=== PATIENT | female | born 1970 | race Caucasian/White ===

== ENCOUNTER 2017-04-10 17:24 | Inpatient (IN) | payer MEDICAID ==
[~2017-04-10] VITALS: Ht 170.2 cm; Wt 77.6 kg
[2017-04-10] MEDS ORDERED: IV NORMAL SALINE 1000ML BAG 1,000 ML IV ONE (17:45)
[2017-04-10 18:23] LABS: BASO % 0 % (0-3); EOS % 0 % (0-3); HEMATOCRIT 36.5 % (36.0-47.0); HEMOGLOBIN 11.8 g/dL (12.0-15.5); LYMPH # 0.6 x10^3/uL (1.0-4.8); LYMPH % 4 % (24-48); MEAN CORPUSCULAR HEMOGLOBIN 29 pg (25-35); MEAN CORPUSCULAR HGB CONC 32 g/dL (31-37); MEAN CORPUSCULAR VOLUME 90 fL (79-100); MONO % 6 % (0-9); NEUT % 89 % (31-73); PLATELET COUNT 316 x10^3/uL (140-400); RED BLOOD COUNT 4.06 x10^6/uL (3.50-5.40)
[2017-04-10 18:24] LABS: BILIRUBIN,URINE NEGATIVE (NEG); GLUCOSE,URINE NEGATIVE (NEG); NITRITE,URINE NEGATIVE (NEG); PH,URINE 6.5; PROTEIN,URINE NEGATIVE (NEG-TRACE); UROBILINOGEN,URINE 0.2 mg/dL (0.2 mg/dL)
[2017-04-10 18:30] LABS: BARBITURATES NEG (NEG); BENZODIAZEPINES NEG (NEG); CANNABINOIDS NEG (NEG); COCAINE NEG (NEG); METHADONE NEG (NEG); OPIATES NEG (NEG); PHENCYCLIDINE NEG (NEG); RBC,URINE OCC /HPF (0-2)
[2017-04-10 18:31] LABS: BACTERIA,URINE 0 /HPF (0-FEW); SQUAMOUS EPITHELIAL CELL,UR FEW /LPF
--- NOTE | 2017-04-10 18:33 | PHYS DOC ---
Past Medical History Past Medical History: Bronchitis, Constipation, Depression, Hypertension, UTI Additional Past Medical Histor: INHALENT ABUSE,,SUBSTANCE ABUSE Past Surgical History: No Surgical History Additional Past Surgical Histo: UNKNOWN Alcohol Use: None Drug Use: None Adult General Chief Complaint Chief Complaint: OTHER COMPLAINTS HPI HPI This is a 46-year-old female who has history of multiple psychiatric comorbidities and is presenting with concern for inability and refusal to take medications at her nursing facility. Patient was just recently admitted to [facility] in their psychiatric unit for this previous complaint and was actually just discharged earlier today. She was discharged in the [facility] where they state now she is again refusing to take her medications. Her primary care doctor wanted her to be seen at [facility] but [facility] did not have any psychiatric beds available and so she presents here for further evaluation. Upon my initial assessment, the patient has a bedside tremor that the facility states she has known history of but she is noncommittal with a history and will not answer basic questions. She is awake and will respond when I call her by her first name but refuses to answer any other questions. Review of Systems Review of Systems A 10 point review of systems is unable be obtained segment of the patient's psychiatric mental status. Current Medications Current Medications Current Medications Medications (Trade) Dose Ordered Sig/Lacey Start Time Stop Time Status Last Admin Dose Admin Sodium Chloride 1,000 ml @ 1,000 mls/hr 1X ONCE 04/10/17 17:45 04/10/17 18:44 DC 04/10/17 18:32 1,000 MLS/HR Allergies Allergies Allergies Coded Allergies Type Severity Reaction Last Updated Verified Penicillins Allergy Intermediate 04/10/17 Yes Physical Exam Physical Exam Constitutional: Well developed, well nourished, no acute distress, non-toxic appearance. [] HENT: Normocephalic, atraumatic, bilateral external ears normal, oropharynx moist, no oral exudates, nose normal. [] Eyes: PERRLA, EOMI, conjunctiva normal, no discharge. [] Neck: Normal range of motion, no tenderness, supple, no stridor. [] Cardiovascular:Heart rate regular rhythm, no murmur [] Lungs & Thorax: Bilateral breath sounds clear to auscultation [] Abdomen: Bowel sounds normal, soft, no tenderness, no masses, no pulsatile masses. [] Skin: Warm, dry, no erythema, no rash. [] Back: No tenderness, no CVA tenderness. [] Extremities: No tenderness, no cyanosis, no clubbing, ROM intact, no edema, a tremor is present. [] Neurologic: Normal motor function, normal sensory function, no focal deficits noted. [] Psychologic: Affect normal, judgement normal, mood normal. [] Current Patient Data Vital Signs Vital Signs Date Time Temp Pulse Resp B/P (MAP) Pulse Ox O2 Delivery O2 Flow Rate FiO2 04/10/17 20:30 102 24 119/67 (84) 96 Room Air 04/10/17 17:34 98.5 98.5 Lab Values Laboratory Tests Test 04/10/17 18:05 04/10/17 18:15 Urine Collection Type U cath Urine Color Yellow Urine Clarity Clear Urine pH 6.5 Urine Specific [place] 1.015 Urine Protein Negative mg/dL (NEG-TRACE) Urine Glucose (UA) Negative mg/dL (NEG) Urine Ketones (Stick) >=80 mg/dL (NEG) Urine Blood Negative (NEG) Urine Nitrite Negative (NEG) Urine Bilirubin Negative (NEG) Urine Urobilinogen Dipstick 0.2 mg/dL (0.2 mg/dL) Urine Leukocyte Esterase Small (NEG) Urine RBC Occ /HPF (0-2) Urine WBC 5-10 /HPF (0-4) Urine Squamous Epithelial Cells Few /LPF Urine Bacteria 0 /HPF (0-FEW) Urine Hyaline Casts Few /HPF Urine Mucus Marked /LPF Urine Opiates Screen Neg (NEG) Urine Methadone Screen Neg (NEG) Urine Barbiturates Neg (NEG) Urine Phencyclidine Screen Neg (NEG) Urine Amphetamine/Methamphetamine Neg (NEG) Urine Benzodiazepines Screen Neg (NEG) Urine Cocaine Screen Neg (NEG) Urine Cannabinoids Screen Neg (NEG) Urine Ethyl Alcohol Neg (NEG) White Blood Count 13.0 x10^3/uL (4.0-11.0) H Red Blood Count 4.06 x10^6/uL (3.50-5.40) Hemoglobin 11.8 g/dL (12.0-15.5) L Hematocrit 36.5 % (36.0-47.0) Mean Corpuscular Volume 90 fL (79-100) Mean Corpuscular Hemoglobin 29 pg (25-35) Mean Corpuscular Hemoglobin Concent 32 g/dL (31-37) Red Cell Distribution Width 14.0 % (11.5-14.5) Platelet Count 316 x10^3/uL (140-400) Neutrophils (%) (Auto) 89 % (31-73) H Lymphocytes (%) (Auto) 4 % (24-48) L Monocytes (%) (Auto) 6 % (0-9) Eosinophils (%) (Auto) 0 % (0-3) Basophils (%) (Auto) 0 % (0-3) Neutrophils # (Auto) 11.6 x10^3uL (1.8-7.7) H Lymphocytes # (Auto) 0.6 x10^3/uL (1.0-4.8) L Monocytes # (Auto) 0.8 x10^3/uL (0.0-1.1) Eosinophils # (Auto) 0.0 x10^3/uL (0.0-0.7) Basophils # (Auto) 0.0 x10^3/uL (0.0-0.2) Segmented Neutrophils % 89 % (35-66) H Lymphocytes % 5 % (24-48) L Monocytes % 6 % (0-10) Platelet Estimate Adequate (ADEQUATE) Sodium Level 142 mmol/L (136-145) Potassium Level 4.0 mmol/L (3.5-5.1) Chloride Level 105 mmol/L (98-107) Carbon Dioxide Level 27 mmol/L (21-32) Anion Gap 10 (6-14) Blood Urea Nitrogen 12 mg/dL (7-20) Creatinine 0.9 mg/dL (0.6-1.0) Estimated GFR (Cockcroft-Gault) 67.1 Glucose Level 118 mg/dL (70-99) H Calcium Level 9.4 mg/dL (8.5-10.1) Salicylates Level < 2.8 mg/dL (2.8-20.0) L Salicylate Last Dose Date Unk Salicylate Last Dose Time Unk Acetaminophen Level < 2 mcg/ml (10-30) L Acetaminophen Last Dose Date Unk Acetaminophen Last Dose Time Unk Ethyl Alcohol Level < 10 mg/dL (0-10) Laboratory Tests 04/10/17 18:15 Laboratory Tests 04/10/17 18:15 EKG EKG EKG as interpreted by me shows a sinus tachycardia with a rate of 113 bpm. There is no acute injury pattern seen. EKG interpretation is somewhat limited due to the patient's ongoing tremor. Radiology/Procedures Radiology/Procedures [] Course & Med Decision Making Course & Med Decision Making Pertinent Labs and Imaging studies reviewed. (See chart for details) 46-year-old female who continues to have a resting tremor and refuses to take medications at her assisted living facility. Her laboratory workup was unremarkable. Due to the fact that she was just discharged from [facility] for this issue an attempt to transfer the patient to [facility] will be made as our facility does not have ability to place psychiatric patients in our hospital. Attempts to admit the patient to [facility] was unsuccessful. I discussed the possible need to admit the patient with the hospitalist, Dr. Waldrop, who agrees to accept for further evaluation treatment for her ongoing dehydration that is likely psychogenic in etiology due to her history of severe schizophrenia. Psychiatric assessment team was called to evaluate the patient. I discussed the case with Dr. Waldrop who agrees to accept for hospital stay if placement is not able to be obtained while in the department. I will sign out this patient to Dr. Catalan and other ED staff for further evaluation and treatment with this plan in mind. Her laboratory workup was fairly unremarkable besides having ketones in her urine which is consistent with mild dehydration diagnosis. Dragon Disclaimer Dragon Disclaimer This electronic medical record was generated, in whole or in part, using a voice recognition dictation system. Departure Departure Impression: Primary Impression: Psychiatric disorder Additional Impression: Dehydration Disposition: ADMITTED INPATIENT Admitting Physician: Chano Waldrop Condition: STABLE Referrals: JEF ATKINSON (PCP) Problem Qualifiers NITA MORSE DO April 10, 2017 18:33
[2017-04-10 18:35] LABS: CALCIUM 9.4 mg/dL (8.5-10.1); CREATININE 0.9 mg/dL (0.6-1.0); GFR 67.1
[2017-04-10 18:40] LABS: ETHANOL < 10 mg/dL (0-10)
[2017-04-10 18:49] LABS: PLT ESTIMATE ADEQUATE (ADEQUATE)
[2017-04-10] MEDS ORDERED: ONDANSETRON PF 4 MG/2 ML VIAL. IV PRN (21:30)
[2017-04-10] MEDS ORDERED: ACETAMINOPHEN 325 MG TABLET. PO PRN (21:30)
[2017-04-11] MEDS: IV NORMAL SALINE 1000ML BAG 1,000 ML IV SCH ×3 (02:00→13:30)
[2017-04-11] MEDS ORDERED: ARIP10TA13 PO ×2 (02:22→02:31)
[2017-04-11] MEDS ORDERED: LORA1TAB PO (02:31)
[2017-04-11] MEDS ORDERED: ACET500T68 PO (02:31)
[2017-04-11] MEDS ORDERED: CEPH500C PO (02:31)
[2017-04-11] MEDS ORDERED: MOXI3DRO2 OP (02:31)
[2017-04-11] MEDS ORDERED: BISA-42 PR (02:36)
[2017-04-11] MEDS ORDERED: IBUP-1027 PO (02:45)
[2017-04-11] MEDS ORDERED: SIME80TA14 PO (02:45)
[2017-04-11] MEDS ORDERED: LORA10TA3 PO (02:45)
[2017-04-11] MEDS ORDERED: CALC11776 PO (02:45)
[2017-04-11] MEDS ORDERED: VITA400C36 PO (02:45)
[2017-04-11] MEDS ORDERED: MOXI3DRO EACHEYE ×2 (02:50)
[2017-04-11 03:00] VITALS: BP 100/67
[2017-04-11 05:54] LABS: BASO % 0 % (0-3); EOS % 1 % (0-3); HEMOGLOBIN 10.2 g/dL (12.0-15.5); LYMPH % 10 % (24-48); MEAN CORPUSCULAR HEMOGLOBIN 30 pg (25-35); MEAN CORPUSCULAR HGB CONC 33 g/dL (31-37); MEAN CORPUSCULAR VOLUME 90 fL (79-100); MONO % 8 % (0-9); NEUT % 81 % (31-73); PLATELET COUNT 281 x10^3/uL (140-400); RED BLOOD COUNT 3.44 x10^6/uL (3.50-5.40); RED CELL DISTRIBUTION WIDTH 14.2 % (11.5-14.5); WHITE BLOOD COUNT 10.2 x10^3/uL (4.0-11.0)
[2017-04-11 06:06] LABS: CALCIUM 8.7 mg/dL (8.5-10.1); CREATININE 0.5 mg/dL (0.6-1.0); GFR 132.2; POTASSIUM 3.8 mmol/L (3.5-5.1)
--- NOTE | 2017-04-11 06:18 | EKG ---
[facility] [address] [place] [address] Test Date: 2017-04-10 Test Time: 18:40:32 Pat Name: LESLY MARQUES Department: Room: Gender: F Cell Tuber Hand: : 1970 Requested By: NITA MORSE Order Number: [id number] Reading MD: Measurements Intervals [place] Rate: 113 P: -17 ME: 110 QRS: 24 QRSD: 84 T: 26 QT: 342 QTc: 475 Interpretive Statements SINUS TACHYCARDIA QRS(T) CONTOUR ABNORMALITY CONSIDER ANTEROSEPTAL MYOCARDIAL DAMAGE CANNOT RULE OUT INFERIOR MYOCARDIAL DAMAGE RI6.01 Unconfirmed report No previous ECG available for comparison
[2017-04-11 07:00] VITALS: BP 121/79
[2017-04-11] MEDS ORDERED: ONDANSETRON PF 4 MG/2 ML VIAL. IV PRN (09:55)
[2017-04-11] MEDS ORDERED: SIMETHICONE 80 MG TAB.CHEW PO PRN (10:00)
[2017-04-11] MEDS ORDERED: BISACODYL 5 MG TABLET.DR. PO PRN (10:00)
[2017-04-11] MEDS ORDERED: ACETAMINOPHEN 325 MG TABLET. PO PRN (10:00)
[2017-04-11] MEDS ORDERED: IBUPROFEN 400 MG TABLET. PO PRN (10:00)
--- NOTE | 2017-04-11 10:41 | PDOC1 ---
History and Physical Date of Admission Date of Admission DATE: 04/11/17 TIME: 10:28 Identification/Chief Complaint Chief Complaint refusal to drink meds, eat Problems: Source Source: Caregiver, Chart review, Patient History of Present Illness History of Present Illness 46 y.o female with psych issues, transferred from [facility] to [facility] ER last night bec of refusal to drink meds. She was attempted to transfer [facility] psych odonnell by ER last night but to no avail. She was just recently dcd from [facility] psych odonnell, dx of schizophrenia. NOw pt refusing IV line, refusing to talk to me or staff, refusing to eat or take meds Dw sister on phone,shakes of her hand is normal. Sister claims she found a place to take her [place], Spoke with SW of [facility], claims there is no psych MD there but another staff told me there was a psych MD engineering operations leader. LAbs benign, all psych issues but unfortunately is not eager to accept her back LAbs just show ketonuria, all else is neg Sw at claims she has rhabdo, all labs look ok - will order CPK to check on rhabdo,. But UA does not show blood - doubt rhabdo Past Medical History Psych: Schizophrenia Past Surgical History Past Surgical History: Other (couls not be obtained from patient) Family History Family History: Other (could not be obtained from patient) Social History Smoke: No ALCOHOL: none Drugs: None Current Problem List Problem List Problems Medical Problems: (1) Dehydration Status: Acute (2) Psychiatric disorder Status: Acute Problems: Current Medications Current Medications Current Medications Sodium Chloride 1,000 ml @ 1,000 mls/hr 1X ONCE IV Last administered on t 18:32; Start 04/10/17 at 17:45; Stop 04/10/17 at 18:44; Status DC Ondansetron HCl (Zofran) 4 mg PRN Q8HRS PRN IV NAUSEA/VOMITING; Start 04/10/17 at 21:30; Stop 04/11/17 at 09:58; Status DC Sodium Chloride 1,000 ml @ 125 mls/hr Q8H IV ; Start 04/10/17 at 21:30; Stop at 21:29 Acetaminophen (Tylenol) 650 mg PRN Q4HRS PRN PO FEVER; Start 04/10/17 at 21:30 ; Stop 04/11/17 at 21:29 Ondansetron HCl (Zofran) 4 mg PRN Q6HRS PRN IV NAUSEA/VOMITING; Start 04/11/17 at 09:55; Stop 04/12/17 at 09:54 Acetaminophen (Tylenol) 650 mg PRN Q6HRS PRN PO PAIN; Start 04/11/17 at 10:00 Bisacodyl (Dulcolax Tab) 10 mg PRN DAILY PRN PO CONSTIPATION; Start 04/11/17 at 10:00 Ibuprofen (Motrin) 400 mg PRN Q4HRS PRN PO INFLAMMATION; Start 04/11/17 at 10: 00 Lorazepam (Ativan) 1 mg TID PO ; Start 04/11/17 at 14:00 Simethicone (Gas-X) 80 mg TID PRN PO UPSET GI; Start 04/11/17 at 10:00 Aripiprazole (Abilify) 10 mg BID PO ; Start 04/11/17 at 11:00 Cetirizine HCl (ZyrTEC) 10 mg DAILY PO ; Start 04/11/17 at 11:00 Vitamin E 400 unit DAILY PO ; Start 04/11/17 at 11:00 Active Scripts Active Reported Moxeza (Moxifloxacin Hcl) 3 Ml Drops.visc 1 Drop EACHEYE TID Vitamin E (Vitamin E Mixed) 400 Unit Capsule 400 Unit PO DAILY Simethicone 80 Mg Tab.chew 80 Mg PO Loratadine 10 Mg Tablet 1 Tab PO DAILY Ibuprofen 400 Mg Tablet 400 Mg PO PRN Q4HRS PRN Tums Ultra Strength (Calcium Carbonate) 1,177 Mg Tab.chew 1,177 Mg PO Dulcolax (Bisacodyl) 5 Mg Tablet.dr 10 Mg GA PRN DAILY PRN Acetaminophen 500 Mg Tablet 650 Mg PO PRN Q4HRS PRN Lorazepam 1 Mg Tablet 1 Tab PO TID Cephalexin 500 Mg Capsule 1 Cap PO QID Abilify (Aripiprazole) 10 Mg Tablet 10 Mg PO BID Allergies Allergies: Coded Allergies: Penicillins (Verified Allergy, Intermediate, 04/10/17) ROS Review of System unable to obtain - refuses to talk Physical Exam General: No acute distress, Other (refusal to talk, hands shaking - her baseline) HEENT: Atraumatic, PERRLA, EOMI Lungs: Clear to auscultation, Normal air movement Heart: S1S2, RRR, no thrills, no rubs Cardiovascular: S1, S2 Breasts: Normal Abdomen: Normal bowel sounds, Soft, No tenderness, No hepatosplenomegaly, No masses Rectal Exam: not examined PELVIC: Nml ext genitalia Extremities: No clubbing, No cyanosis, No edema, Normal pulses, No tenderness/ swelling Skin: No rashes, No breakdown, No significant lesion Neuro: Normal gait, Normal speech, Strength at 5/5 X4 ext, Normal tone, Sensation intact, Cranial nerves 3-12 NL, Reflexes 2+ Psych/Mental Status: Other (refusal to talk) Vitals Vitals Vital Signs Date Time Temp Pulse Resp B/P (MAP) Pulse Ox O2 Delivery O2 Flow Rate FiO2 04/11/17 07:00 97.7 96 20 121/79 (93) 92 Room Air 97.7 Labs Labs Laboratory Tests Test 04/10/17 18:05 04/10/17 18:15 04/11/17 05:20 Urine Collection Type U cath Urine Color Yellow Urine Clarity Clear Urine pH 6.5 Urine Specific [place] 1.015 Urine Protein Negative mg/dL (NEG-TRACE) Urine Glucose (UA) Negative mg/dL (NEG) Urine Ketones (Stick) >=80 mg/dL (NEG) Urine Blood Negative (NEG) Urine Nitrite Negative (NEG) Urine Bilirubin Negative (NEG) Urine Urobilinogen Dipstick 0.2 mg/dL (0.2 mg/dL) Urine Leukocyte Esterase Small (NEG) Urine RBC Occ /HPF (0-2) Urine WBC 5-10 /HPF (0-4) Urine Squamous Epithelial Cells Few /LPF Urine Bacteria 0 /HPF (0-FEW) Urine Hyaline Casts Few /HPF Urine Mucus Marked /LPF Urine Opiates Screen Neg (NEG) Urine Methadone Screen Neg (NEG) Urine Barbiturates Neg (NEG) Urine Phencyclidine Screen Neg (NEG) Urine Amphetamine/Methamphetamine Neg (NEG) Urine Benzodiazepines Screen Neg (NEG) Urine Cocaine Screen Neg (NEG) Urine Cannabinoids Screen Neg (NEG) Urine Ethyl Alcohol Neg (NEG) White Blood Count 13.0 x10^3/uL (4.0-11.0) 10.2 x10^3/uL (4.0-11.0) Red Blood Count 4.06 x10^6/uL (3.50-5.40) 3.44 x10^6/uL (3.50-5.40) Hemoglobin 11.8 g/dL (12.0-15.5) 10.2 g/dL (12.0-15.5) Hematocrit 36.5 % (36.0-47.0) 31.0 % (36.0-47.0) Mean Corpuscular Volume 90 fL (79-100) 90 fL (79-100) Mean Corpuscular Hemoglobin 29 pg (25-35) 30 pg (25-35) Mean Corpuscular Hemoglobin Concent 32 g/dL (31-37) 33 g/dL (31-37) Red Cell Distribution Width 14.0 % (11.5-14.5) 14.2 % (11.5-14.5) Platelet Count 316 x10^3/uL (140-400) 281 x10^3/uL (140-400) Neutrophils (%) (Auto) 89 % (31-73) 81 % (31-73) Lymphocytes (%) (Auto) 4 % (24-48) 10 % (24-48) Monocytes (%) (Auto) 6 % (0-9) 8 % (0-9) Eosinophils (%) (Auto) 0 % (0-3) 1 % (0-3) Basophils (%) (Auto) 0 % (0-3) 0 % (0-3) Neutrophils # (Auto) 11.6 x10^3uL (1.8-7.7) 8.3 x10^3uL (1.8-7.7) Lymphocytes # (Auto) 0.6 x10^3/uL (1.0-4.8) 1.0 x10^3/uL (1.0-4.8) Monocytes # (Auto) 0.8 x10^3/uL (0.0-1.1) 0.8 x10^3/uL (0.0-1.1) Eosinophils # (Auto) 0.0 x10^3/uL (0.0-0.7) 0.1 x10^3/uL (0.0-0.7) Basophils # (Auto) 0.0 x10^3/uL (0.0-0.2) 0.0 x10^3/uL (0.0-0.2) Segmented Neutrophils % 89 % (35-66) Lymphocytes % 5 % (24-48) Monocytes % 6 % (0-10) Platelet Estimate Adequate (ADEQUATE) Sodium Level 142 mmol/L (136-145) 142 mmol/L (136-145) Potassium Level 4.0 mmol/L (3.5-5.1) 3.8 mmol/L (3.5-5.1) Chloride Level 105 mmol/L (98-107) 106 mmol/L (98-107) Carbon Dioxide Level 27 mmol/L (21-32) 24 mmol/L (21-32) Anion Gap 10 (6-14) 12 (6-14) Blood Urea Nitrogen 12 mg/dL (7-20) 13 mg/dL (7-20) Creatinine 0.9 mg/dL (0.6-1.0) 0.5 mg/dL (0.6-1.0) Estimated GFR (Cockcroft-Gault) 67.1 132.2 Glucose Level 118 mg/dL (70-99) 90 mg/dL (70-99) Calcium Level 9.4 mg/dL (8.5-10.1) 8.7 mg/dL (8.5-10.1) Salicylates Level < 2.8 mg/dL (2.8-20.0) Salicylate Last Dose Date Unk Salicylate Last Dose Time Unk Acetaminophen Level < 2 mcg/ml (10-30) Acetaminophen Last Dose Date Unk Acetaminophen Last Dose Time Unk Ethyl Alcohol Level < 10 mg/dL (0-10) Laboratory Tests Test 04/10/17 18:05 04/10/17 18:15 04/11/17 05:20 Urine Collection Type U cath Urine Color Yellow Urine Clarity Clear Urine pH 6.5 Urine Specific [place] 1.015 Urine Protein Negative mg/dL (NEG-TRACE) Urine Glucose (UA) Negative mg/dL (NEG) Urine Ketones (Stick) >=80 mg/dL (NEG) Urine Blood Negative (NEG) Urine Nitrite Negative (NEG) Urine Bilirubin Negative (NEG) Urine Urobilinogen Dipstick 0.2 mg/dL (0.2 mg/dL) Urine Leukocyte Esterase Small (NEG) Urine RBC Occ /HPF (0-2) Urine WBC 5-10 /HPF (0-4) Urine Squamous Epithelial Cells Few /LPF Urine Bacteria 0 /HPF (0-FEW) Urine Hyaline Casts Few /HPF Urine Mucus Marked /LPF Urine Opiates Screen Neg (NEG) Urine Methadone Screen Neg (NEG) Urine Barbiturates Neg (NEG) Urine Phencyclidine Screen Neg (NEG) Urine Amphetamine/Methamphetamine Neg (NEG) Urine Benzodiazepines Screen Neg (NEG) Urine Cocaine Screen Neg (NEG) Urine Cannabinoids Screen Neg (NEG) Urine Ethyl Alcohol Neg (NEG) White Blood Count 13.0 x10^3/uL (4.0-11.0) 10.2 x10^3/uL (4.0-11.0) Red Blood Count 4.06 x10^6/uL (3.50-5.40) 3.44 x10^6/uL (3.50-5.40) Hemoglobin 11.8 g/dL (12.0-15.5) 10.2 g/dL (12.0-15.5) Hematocrit 36.5 % (36.0-47.0) 31.0 % (36.0-47.0) Mean Corpuscular Volume 90 fL (79-100) 90 fL (79-100) Mean Corpuscular Hemoglobin 29 pg (25-35) 30 pg (25-35) Mean Corpuscular Hemoglobin Concent 32 g/dL (31-37) 33 g/dL (31-37) Red Cell Distribution Width 14.0 % (11.5-14.5) 14.2 % (11.5-14.5) Platelet Count 316 x10^3/uL (140-400) 281 x10^3/uL (140-400) Neutrophils (%) (Auto) 89 % (31-73) 81 % (31-73) Lymphocytes (%) (Auto) 4 % (24-48) 10 % (24-48) Monocytes (%) (Auto) 6 % (0-9) 8 % (0-9) Eosinophils (%) (Auto) 0 % (0-3) 1 % (0-3) Basophils (%) (Auto) 0 % (0-3) 0 % (0-3) Neutrophils # (Auto) 11.6 x10^3uL (1.8-7.7) 8.3 x10^3uL (1.8-7.7) Lymphocytes # (Auto) 0.6 x10^3/uL (1.0-4.8) 1.0 x10^3/uL (1.0-4.8) Monocytes # (Auto) 0.8 x10^3/uL (0.0-1.1) 0.8 x10^3/uL (0.0-1.1) Eosinophils # (Auto) 0.0 x10^3/uL (0.0-0.7) 0.1 x10^3/uL (0.0-0.7) Basophils # (Auto) 0.0 x10^3/uL (0.0-0.2) 0.0 x10^3/uL (0.0-0.2) Segmented Neutrophils % 89 % (35-66) Lymphocytes % 5 % (24-48) Monocytes % 6 % (0-10) Platelet Estimate Adequate (ADEQUATE) Sodium Level 142 mmol/L (136-145) 142 mmol/L (136-145) Potassium Level 4.0 mmol/L (3.5-5.1) 3.8 mmol/L (3.5-5.1) Chloride Level 105 mmol/L (98-107) 106 mmol/L (98-107) Carbon Dioxide Level 27 mmol/L (21-32) 24 mmol/L (21-32) Anion Gap 10 (6-14) 12 (6-14) Blood Urea Nitrogen 12 mg/dL (7-20) 13 mg/dL (7-20) Creatinine 0.9 mg/dL (0.6-1.0) 0.5 mg/dL (0.6-1.0) Estimated GFR (Cockcroft-Gault) 67.1 132.2 Glucose Level 118 mg/dL (70-99) 90 mg/dL (70-99) Calcium Level 9.4 mg/dL (8.5-10.1) 8.7 mg/dL (8.5-10.1) Salicylates Level < 2.8 mg/dL (2.8-20.0) Salicylate Last Dose Date Unk Salicylate Last Dose Time Unk Acetaminophen Level < 2 mcg/ml (10-30) Acetaminophen Last Dose Date Unk Acetaminophen Last Dose Time Unk Ethyl Alcohol Level < 10 mg/dL (0-10) VTE Prophylaxis Ordered VTE Prophylaxis Devices: Yes VTE Pharmacological Prophylaxi: Yes Assessment/Plan Assessment/Plan 1. Schizophrenia 2. Refusal to take meds 3/ r/o rhabdo 4. AOCD 5. Chronic hand shakes 6. Reactive leukocytosis, resolved 7. Ketonuria - advised inc OFI PLAN: Check cpk and myoglobin UA does now show blood - doubt rhabdo All labs look ok Inc OFI Needs psych eval Dw RN, SW, case mx, GL 3 diff people Sister on the phone etc, multiple times VERY SIGNIF TIME.. VAHID LONDONO MD April 11, 2017 10:41
--- NOTE | 2017-04-11 10:49 | PDOC3 ---
Discharge Summary Visit Information Date of Admission: April 10, 2017 Date of Discharge: April 11, 2017 Admitting Diagnosis Comment: 1. Schizophrenia 2. Refusal to take meds 3/ r/o rhabdo 4. AOCD 5. Chronic hand shakes 6. Reactive leukocytosis, resolved 7. Ketonuria - advised inc OFI Final Diagnosis Problems Medical Problems: (1) Dehydration Status: Acute (2) Psychiatric disorder Status: Acute Brief Hospital Course Allergies Allergies Coded Allergies Type Severity Reaction Last Updated Verified Penicillins Allergy Intermediate 04/10/17 Yes Vital Signs Vital Signs Date Time Temp Pulse Resp B/P (MAP) Pulse Ox O2 Delivery O2 Flow Rate FiO2 04/11/17 07:00 97.7 96 20 121/79 (93) 92 Room Air 97.7 Lab Results Laboratory Tests Test 04/10/17 18:05 04/10/17 18:15 04/11/17 05:20 Urine Collection Type U cath Urine Color Yellow Urine Clarity Clear Urine pH 6.5 Urine Specific [place] 1.015 Urine Protein Negative mg/dL (NEG-TRACE) Urine Glucose (UA) Negative mg/dL (NEG) Urine Ketones (Stick) >=80 mg/dL (NEG) Urine Blood Negative (NEG) Urine Nitrite Negative (NEG) Urine Bilirubin Negative (NEG) Urine Urobilinogen Dipstick 0.2 mg/dL (0.2 mg/dL) Urine Leukocyte Esterase Small (NEG) Urine RBC Occ /HPF (0-2) Urine WBC 5-10 /HPF (0-4) Urine Squamous Epithelial Cells Few /LPF Urine Bacteria 0 /HPF (0-FEW) Urine Hyaline Casts Few /HPF Urine Mucus Marked /LPF Urine Opiates Screen Neg (NEG) Urine Methadone Screen Neg (NEG) Urine Barbiturates Neg (NEG) Urine Phencyclidine Screen Neg (NEG) Urine Amphetamine/Methamphetamine Neg (NEG) Urine Benzodiazepines Screen Neg (NEG) Urine Cocaine Screen Neg (NEG) Urine Cannabinoids Screen Neg (NEG) Urine Ethyl Alcohol Neg (NEG) White Blood Count 13.0 x10^3/uL (4.0-11.0) 10.2 x10^3/uL (4.0-11.0) Red Blood Count 4.06 x10^6/uL (3.50-5.40) 3.44 x10^6/uL (3.50-5.40) Hemoglobin 11.8 g/dL (12.0-15.5) 10.2 g/dL (12.0-15.5) Hematocrit 36.5 % (36.0-47.0) 31.0 % (36.0-47.0) Mean Corpuscular Volume 90 fL (79-100) 90 fL (79-100) Mean Corpuscular Hemoglobin 29 pg (25-35) 30 pg (25-35) Mean Corpuscular Hemoglobin Concent 32 g/dL (31-37) 33 g/dL (31-37) Red Cell Distribution Width 14.0 % (11.5-14.5) 14.2 % (11.5-14.5) Platelet Count 316 x10^3/uL (140-400) 281 x10^3/uL (140-400) Neutrophils (%) (Auto) 89 % (31-73) 81 % (31-73) Lymphocytes (%) (Auto) 4 % (24-48) 10 % (24-48) Monocytes (%) (Auto) 6 % (0-9) 8 % (0-9) Eosinophils (%) (Auto) 0 % (0-3) 1 % (0-3) Basophils (%) (Auto) 0 % (0-3) 0 % (0-3) Neutrophils # (Auto) 11.6 x10^3uL (1.8-7.7) 8.3 x10^3uL (1.8-7.7) Lymphocytes # (Auto) 0.6 x10^3/uL (1.0-4.8) 1.0 x10^3/uL (1.0-4.8) Monocytes # (Auto) 0.8 x10^3/uL (0.0-1.1) 0.8 x10^3/uL (0.0-1.1) Eosinophils # (Auto) 0.0 x10^3/uL (0.0-0.7) 0.1 x10^3/uL (0.0-0.7) Basophils # (Auto) 0.0 x10^3/uL (0.0-0.2) 0.0 x10^3/uL (0.0-0.2) Segmented Neutrophils % 89 % (35-66) Lymphocytes % 5 % (24-48) Monocytes % 6 % (0-10) Platelet Estimate Adequate (ADEQUATE) Sodium Level 142 mmol/L (136-145) 142 mmol/L (136-145) Potassium Level 4.0 mmol/L (3.5-5.1) 3.8 mmol/L (3.5-5.1) Chloride Level 105 mmol/L (98-107) 106 mmol/L (98-107) Carbon Dioxide Level 27 mmol/L (21-32) 24 mmol/L (21-32) Anion Gap 10 (6-14) 12 (6-14) Blood Urea Nitrogen 12 mg/dL (7-20) 13 mg/dL (7-20) Creatinine 0.9 mg/dL (0.6-1.0) 0.5 mg/dL (0.6-1.0) Estimated GFR (Cockcroft-Gault) 67.1 132.2 Glucose Level 118 mg/dL (70-99) 90 mg/dL (70-99) Calcium Level 9.4 mg/dL (8.5-10.1) 8.7 mg/dL (8.5-10.1) Salicylates Level < 2.8 mg/dL (2.8-20.0) Salicylate Last Dose Date Unk Salicylate Last Dose Time Unk Acetaminophen Level < 2 mcg/ml (10-30) Acetaminophen Last Dose Date Unk Acetaminophen Last Dose Time Unk Ethyl Alcohol Level < 10 mg/dL (0-10) Laboratory Tests Test 04/10/17 18:05 04/10/17 18:15 04/11/17 05:20 Urine Collection Type U cath Urine Color Yellow Urine Clarity Clear Urine pH 6.5 Urine Specific [place] 1.015 Urine Protein Negative mg/dL (NEG-TRACE) Urine Glucose (UA) Negative mg/dL (NEG) Urine Ketones (Stick) >=80 mg/dL (NEG) Urine Blood Negative (NEG) Urine Nitrite Negative (NEG) Urine Bilirubin Negative (NEG) Urine Urobilinogen Dipstick 0.2 mg/dL (0.2 mg/dL) Urine Leukocyte Esterase Small (NEG) Urine RBC Occ /HPF (0-2) Urine WBC 5-10 /HPF (0-4) Urine Squamous Epithelial Cells Few /LPF Urine Bacteria 0 /HPF (0-FEW) Urine Hyaline Casts Few /HPF Urine Mucus Marked /LPF Urine Opiates Screen Neg (NEG) Urine Methadone Screen Neg (NEG) Urine Barbiturates Neg (NEG) Urine Phencyclidine Screen Neg (NEG) Urine Amphetamine/Methamphetamine Neg (NEG) Urine Benzodiazepines Screen Neg (NEG) Urine Cocaine Screen Neg (NEG) Urine Cannabinoids Screen Neg (NEG) Urine Ethyl Alcohol Neg (NEG) White Blood Count 13.0 x10^3/uL (4.0-11.0) 10.2 x10^3/uL (4.0-11.0) Red Blood Count 4.06 x10^6/uL (3.50-5.40) 3.44 x10^6/uL (3.50-5.40) Hemoglobin 11.8 g/dL (12.0-15.5) 10.2 g/dL (12.0-15.5) Hematocrit 36.5 % (36.0-47.0) 31.0 % (36.0-47.0) Mean Corpuscular Volume 90 fL (79-100) 90 fL (79-100) Mean Corpuscular Hemoglobin 29 pg (25-35) 30 pg (25-35) Mean Corpuscular Hemoglobin Concent 32 g/dL (31-37) 33 g/dL (31-37) Red Cell Distribution Width 14.0 % (11.5-14.5) 14.2 % (11.5-14.5) Platelet Count 316 x10^3/uL (140-400) 281 x10^3/uL (140-400) Neutrophils (%) (Auto) 89 % (31-73) 81 % (31-73) Lymphocytes (%) (Auto) 4 % (24-48) 10 % (24-48) Monocytes (%) (Auto) 6 % (0-9) 8 % (0-9) Eosinophils (%) (Auto) 0 % (0-3) 1 % (0-3) Basophils (%) (Auto) 0 % (0-3) 0 % (0-3) Neutrophils # (Auto) 11.6 x10^3uL (1.8-7.7) 8.3 x10^3uL (1.8-7.7) Lymphocytes # (Auto) 0.6 x10^3/uL (1.0-4.8) 1.0 x10^3/uL (1.0-4.8) Monocytes # (Auto) 0.8 x10^3/uL (0.0-1.1) 0.8 x10^3/uL (0.0-1.1) Eosinophils # (Auto) 0.0 x10^3/uL (0.0-0.7) 0.1 x10^3/uL (0.0-0.7) Basophils # (Auto) 0.0 x10^3/uL (0.0-0.2) 0.0 x10^3/uL (0.0-0.2) Segmented Neutrophils % 89 % (35-66) Lymphocytes % 5 % (24-48) Monocytes % 6 % (0-10) Platelet Estimate Adequate (ADEQUATE) Sodium Level 142 mmol/L (136-145) 142 mmol/L (136-145) Potassium Level 4.0 mmol/L (3.5-5.1) 3.8 mmol/L (3.5-5.1) Chloride Level 105 mmol/L (98-107) 106 mmol/L (98-107) Carbon Dioxide Level 27 mmol/L (21-32) 24 mmol/L (21-32) Anion Gap 10 (6-14) 12 (6-14) Blood Urea Nitrogen 12 mg/dL (7-20) 13 mg/dL (7-20) Creatinine 0.9 mg/dL (0.6-1.0) 0.5 mg/dL (0.6-1.0) Estimated GFR (Cockcroft-Gault) 67.1 132.2 Glucose Level 118 mg/dL (70-99) 90 mg/dL (70-99) Calcium Level 9.4 mg/dL (8.5-10.1) 8.7 mg/dL (8.5-10.1) Salicylates Level < 2.8 mg/dL (2.8-20.0) Salicylate Last Dose Date Unk Salicylate Last Dose Time Unk Acetaminophen Level < 2 mcg/ml (10-30) Acetaminophen Last Dose Date Unk Acetaminophen Last Dose Time Unk Ethyl Alcohol Level < 10 mg/dL (0-10) Brief Hospital Course Ms. Bai is a 46 old [sex] who presented with [ ]46 y.o female with psych issues, transferred from [facility] to [facility] ER last night bec of refusal to drink meds. She was attempted to transfer [facility] psych [place] by ER last night but to no avail. She was just recently dcd from [facility] psych [place], dx of schizophrenia. NOw pt refusing IV line, refusing to talk to me or staff, refusing to eat or take meds Dw sister on phone,shakes of her hand is normal. Sister claims she found a place to take her [place], Spoke with SW of [facility], claims there is no psych MD there but another staff told me there was a psych MD collections professional. LAbs benign, all psych issues but unfortunately is not eager to accept her back LAbs just show ketonuria, all else is neg Sw at claims she has rhabdo, all labs look ok - will order CPK to check on rhabdo,. But UA does not show blood - doubt rhabdo If CPK and myoglobin normal will dc back to , NO medical necessity to be in house Discharge Information Condition at Discharge: Stable Disposition/Orders: Other (snf) Scheduled Aripiprazole (Abilify), 10 MG PO BID, (Reported) Cephalexin (Cephalexin), 1 CAP PO QID, (Reported) Loratadine (Loratadine), 1 TAB PO DAILY, (Reported) Lorazepam (Lorazepam), 1 TAB PO TID, (Reported) Moxifloxacin Hcl (Moxeza), 1 DROP EACHEYE TID, (Reported) Vitamin E Mixed (Vitamin E), 400 UNIT PO DAILY, (Reported) Scheduled PRN Acetaminophen (Acetaminophen), 650 MG PO PRN Q4HRS PRN for PAIN, (Reported) Bisacodyl (Dulcolax), 10 MG RI PRN DAILY PRN for CONSTIPATION, (Reported) Ibuprofen (Ibuprofen), 400 MG PO PRN Q4HRS PRN for INFLAMMATION, (Reported) Miscellaneous Medications Calcium Carbonate (Tums Ultra Strength), 1,177 MG PO, (Reported) Simethicone (Simethicone), 80 MG PO, (Reported) VAHID LONDONO MD April 11, 2017 10:49
[2017-04-11 11:00] VITALS: BP 120/74
[2017-04-11] MEDS: VITAMIN E 200 UNIT CAPSULE. PO SCH (14:33)
[2017-04-11] MEDS: CETIRIZINE HCL 10 MG TABLET. PO SCH (14:34)
[2017-04-11] MEDS: ARIPiprazole 5 MG TABLET PO SCH ×2 (14:34→21:00)
[2017-04-11] MEDS: LORazepam 1 MG TABLET PO SCH ×2 (14:35→21:00)
[2017-04-11 15:00] VITALS: BP 118/83
[2017-04-11 23:59] VITALS: BP 103/72
[2017-04-12 03:59] VITALS: BP 100/66
[2017-04-12 07:00] VITALS: BP 122/75
[2017-04-12] MEDS: VITAMIN E 200 UNIT CAPSULE. PO SCH (08:53)
[2017-04-12] MEDS: LORazepam 1 MG TABLET PO SCH ×2 (08:53→14:00)
[2017-04-12] MEDS: CETIRIZINE HCL 10 MG TABLET. PO SCH (08:53)
[2017-04-12] MEDS: ARIPiprazole 5 MG TABLET PO SCH (08:53)
[2017-04-12 11:09] VITALS: BP 105/81
--- NOTE | 2017-04-12 11:56 | PDOC ---
PROGRESS NOTES Chief Complaint Chief Complaint 1. Schizophrenia 2. Refusal to take meds 3/ Elevated CPK 9600s) 4. AOCD 5. Chronic hand shakes 6. Reactive leukocytosis, resolved 7. Ketonuria - advised inc OFI History of Present Illness History of Present Illness Better today Talking more ATe 100% her breakfast tray Still refused IV line and AM meds though I Asked her if she was happy with her residence - she says no, she would like to stay here in hospital Mother here earlier CAse dw RN and aide PLan; recheck CPK, if normalized, back to Inc [facility]I advised OK to not stick and dc IVF order Needs psych (almost catatonic yesterday) Vitals Vitals Vital Signs Date Time Temp Pulse Resp B/P (MAP) Pulse Ox O2 Delivery O2 Flow Rate FiO2 04/12/17 11:09 97.7 94 20 105/81 (89) 97 Room Air 97.7 Physical Exam General: Alert, Cooperative, No acute distress, Other (refusal to talk, hands shaking - her baseline) Heart: Regular rate, Normal S1, Normal S2 Lungs: Clear Abdomen: Normal bowel sounds, Soft, No tenderness, No hepatosplenomegaly, No masses Extremities: No clubbing, No cyanosis, No edema, Normal pulses, No tenderness/ swelling Skin: No rashes, No breakdown, No significant lesion Review of Systems Review of Systems denies 14 pt Assessment and Plan Assessmemt and Plan Problems Medical Problems: (1) Dehydration Status: Acute (2) Psychiatric disorder Status: Acute Problems: Comment Review of Relevant I have reviewed the following items celio (where applicable) has been applied. Labs Laboratory Tests Test 04/10/17 18:05 04/10/17 18:15 04/11/17 05:20 Urine Collection Type U cath Urine Color Yellow Urine Clarity Clear Urine pH 6.5 Urine Specific [place] 1.015 Urine Protein Negative mg/dL (NEG-TRACE) Urine Glucose (UA) Negative mg/dL (NEG) Urine Ketones (Stick) >=80 mg/dL (NEG) Urine Blood Negative (NEG) Urine Nitrite Negative (NEG) Urine Bilirubin Negative (NEG) Urine Urobilinogen Dipstick 0.2 mg/dL (0.2 mg/dL) Urine Leukocyte Esterase Small (NEG) Urine RBC Occ /HPF (0-2) Urine WBC 5-10 /HPF (0-4) Urine Squamous Epithelial Cells Few /LPF Urine Bacteria 0 /HPF (0-FEW) Urine Hyaline Casts Few /HPF Urine Mucus Marked /LPF Urine Opiates Screen Neg (NEG) Urine Methadone Screen Neg (NEG) Urine Barbiturates Neg (NEG) Urine Phencyclidine Screen Neg (NEG) Urine Amphetamine/Methamphetamine Neg (NEG) Urine Benzodiazepines Screen Neg (NEG) Urine Cocaine Screen Neg (NEG) Urine Cannabinoids Screen Neg (NEG) Urine Ethyl Alcohol Neg (NEG) White Blood Count 13.0 x10^3/uL (4.0-11.0) 10.2 x10^3/uL (4.0-11.0) Red Blood Count 4.06 x10^6/uL (3.50-5.40) 3.44 x10^6/uL (3.50-5.40) Hemoglobin 11.8 g/dL (12.0-15.5) 10.2 g/dL (12.0-15.5) Hematocrit 36.5 % (36.0-47.0) 31.0 % (36.0-47.0) Mean Corpuscular Volume 90 fL (79-100) 90 fL (79-100) Mean Corpuscular Hemoglobin 29 pg (25-35) 30 pg (25-35) Mean Corpuscular Hemoglobin Concent 32 g/dL (31-37) 33 g/dL (31-37) Red Cell Distribution Width 14.0 % (11.5-14.5) 14.2 % (11.5-14.5) Platelet Count 316 x10^3/uL (140-400) 281 x10^3/uL (140-400) Neutrophils (%) (Auto) 89 % (31-73) 81 % (31-73) Lymphocytes (%) (Auto) 4 % (24-48) 10 % (24-48) Monocytes (%) (Auto) 6 % (0-9) 8 % (0-9) Eosinophils (%) (Auto) 0 % (0-3) 1 % (0-3) Basophils (%) (Auto) 0 % (0-3) 0 % (0-3) Neutrophils # (Auto) 11.6 x10^3uL (1.8-7.7) 8.3 x10^3uL (1.8-7.7) Lymphocytes # (Auto) 0.6 x10^3/uL (1.0-4.8) 1.0 x10^3/uL (1.0-4.8) Monocytes # (Auto) 0.8 x10^3/uL (0.0-1.1) 0.8 x10^3/uL (0.0-1.1) Eosinophils # (Auto) 0.0 x10^3/uL (0.0-0.7) 0.1 x10^3/uL (0.0-0.7) Basophils # (Auto) 0.0 x10^3/uL (0.0-0.2) 0.0 x10^3/uL (0.0-0.2) Segmented Neutrophils % 89 % (35-66) Lymphocytes % 5 % (24-48) Monocytes % 6 % (0-10) Platelet Estimate Adequate (ADEQUATE) Sodium Level 142 mmol/L (136-145) 142 mmol/L (136-145) Potassium Level 4.0 mmol/L (3.5-5.1) 3.8 mmol/L (3.5-5.1) Chloride Level 105 mmol/L (98-107) 106 mmol/L (98-107) Carbon Dioxide Level 27 mmol/L (21-32) 24 mmol/L (21-32) Anion Gap 10 (6-14) 12 (6-14) Blood Urea Nitrogen 12 mg/dL (7-20) 13 mg/dL (7-20) Creatinine 0.9 mg/dL (0.6-1.0) 0.5 mg/dL (0.6-1.0) Estimated GFR (Cockcroft-Gault) 67.1 132.2 Glucose Level 118 mg/dL (70-99) 90 mg/dL (70-99) Calcium Level 9.4 mg/dL (8.5-10.1) 8.7 mg/dL (8.5-10.1) Salicylates Level < 2.8 mg/dL (2.8-20.0) Salicylate Last Dose Date Unk Salicylate Last Dose Time Unk Acetaminophen Level < 2 mcg/ml (10-30) Acetaminophen Last Dose Date Unk Acetaminophen Last Dose Time Unk Ethyl Alcohol Level < 10 mg/dL (0-10) Creatine Kinase 685 U/L (26-192) Microbiology 04/10/17 Urine Culture - Preliminary, Resulted 04/10/17 Urine Culture Result 1 (MORENITA) - Preliminary, Resulted Medications Current Medications Sodium Chloride 1,000 ml @ 1,000 mls/hr 1X ONCE IV Last administered on t 18:32; Start 04/10/17 at 17:45; Stop 04/10/17 at 18:44; Status DC Ondansetron HCl (Zofran) 4 mg PRN Q8HRS PRN IV NAUSEA/VOMITING; Start 04/10/17 at 21:30; Stop 04/11/17 at 09:58; Status DC Sodium Chloride 1,000 ml @ 125 mls/hr Q8H IV ; Start 04/10/17 at 21:30; Stop at 21:29; Status DC Acetaminophen (Tylenol) 650 mg PRN Q4HRS PRN PO FEVER; Start 04/10/17 at 21:30 ; Stop 04/11/17 at 21:29; Status DC Ondansetron HCl (Zofran) 4 mg PRN Q6HRS PRN IV NAUSEA/VOMITING; Start 04/11/17 at 09:55; Stop 04/12/17 at 09:54; Status DC Acetaminophen (Tylenol) 650 mg PRN Q6HRS PRN PO PAIN; Start 04/11/17 at 10:00 Bisacodyl (Dulcolax Tab) 10 mg PRN DAILY PRN PO CONSTIPATION; Start 04/11/17 at 10:00 Ibuprofen (Motrin) 400 mg PRN Q4HRS PRN PO INFLAMMATION; Start 04/11/17 at 10: 00 Lorazepam (Ativan) 1 mg TID PO ; Start 04/11/17 at 14:00 Simethicone (Gas-X) 80 mg TID PRN PO UPSET GI; Start 04/11/17 at 10:00 Aripiprazole (Abilify) 10 mg BID PO ; Start 04/11/17 at 11:00 Cetirizine HCl (ZyrTEC) 10 mg DAILY PO ; Start 04/11/17 at 11:00 Vitamin E 400 unit DAILY PO ; Start 04/11/17 at 11:00 Active Scripts Active Reported Moxeza (Moxifloxacin Hcl) 3 Ml Drops.visc 1 Drop EACHEYE TID Vitamin E (Vitamin E Mixed) 400 Unit Capsule 400 Unit PO DAILY Simethicone 80 Mg Tab.chew 80 Mg PO Loratadine 10 Mg Tablet 1 Tab PO DAILY Ibuprofen 400 Mg Tablet 400 Mg PO PRN Q4HRS PRN Tums Ultra Strength (Calcium Carbonate) 1,177 Mg Tab.chew 1,177 Mg PO Dulcolax (Bisacodyl) 5 Mg Tablet.dr 10 Mg RI PRN DAILY PRN Acetaminophen 500 Mg Tablet 650 Mg PO PRN Q4HRS PRN Lorazepam 1 Mg Tablet 1 Tab PO TID Cephalexin 500 Mg Capsule 1 Cap PO QID Abilify (Aripiprazole) 10 Mg Tablet 10 Mg PO BID Vitals/I & O Vital Sign - Last 24 Hours 04/11/17 04/11/17 04/11/17 04/11/17 15:00 19:59 20:00 23:59 Temp 97.6 98.6 97.6 98.6 Pulse 88 90 Resp 16 18 B/P (MAP) 118/83 (95) 103/72 (82) Pulse Ox 98 92 O2 Delivery Room Air Room Air Room Air Room Air 04/12/17 04/12/17 04/12/17 03:59 07:00 11:09 Temp 98.3 97.7 97.7 98.3 97.7 97.7 Pulse 94 18 94 Resp 18 20 B/P (MAP) 100/66 (77) 122/75 (91) 105/81 (89) Pulse Ox 93 93 97 O2 Delivery Room Air Room Air Room Air Intake and Output 04/11/17 04/11/17 04/12/17 15:00 23:00 07:00 Intake Total 500 ml Output Total 350 ml Balance -350 ml 500 ml VAHID LONDONO MD April 12, 2017 11:56
--- NOTE | 2017-04-12 13:39 | PDOC ---
Provider Note Provider Note DISCHARGE SUMMARY Site Code: [facility] Name: LESLY BAI Acct: [id number] MR: [id number] : 1970 Visit Date: 04/10/17 [facility] [address] [place], [place] [id number] DISCHARGE SUMMARY PATIENT: LESLY BAI ACCOUNT: [id number] : 1970 LOC: [address] [place] [address] AGE: 46 SEX: F STATUS: ADM IN LOCATION: [address] [place] [address] Discharge Summary Visit Information Date of Admission: April 10, 2017 Date of Discharge: April 11, 2017 Admitting Diagnosis Comment: 1. Schizophrenia 2. Refusal to take meds 3/ r/o rhabdo 4. AOCD 5. Chronic hand shakes 6. Reactive leukocytosis, resolved 7. Ketonuria - advised inc OFI Final Diagnosis Problems Medical Problems: (1) Dehydration Status: Acute (2) Psychiatric disorder Status: Acute Brief Hospital Course Allergies Allergies Coded Allergies Type Severity Reaction Last Updated Verified Penicillins Allergy Intermediate 04/10/17 Yes Vital Signs Vital Signs Date Time Temp Pulse Resp B/P (MAP) Pulse Ox O2 Delivery O2 Flow Rate FiO2 04/11/17 07:00 97.7 96 20 121/79 (93) 92 Room Air 97.7 Lab Results Laboratory Tests Test 04/10/17 18:05 04/10/17 18:15 04/11/17 05:20 Urine Collection Type U cath Urine Color Yellow Urine Clarity Clear Urine pH 6.5 Urine Specific [employer] 1.015 Urine Protein Negative mg/dL (NEG-TRACE) Urine Glucose (UA) Negative mg/dL (NEG) Urine Ketones (Stick) >=80 mg/dL (NEG) Urine Blood Negative (NEG) Urine Nitrite Negative (NEG) Urine Bilirubin Negative (NEG) Urine Urobilinogen Dipstick 0.2 mg/dL (0.2 mg/dL) Urine Leukocyte Esterase Small (NEG) Urine RBC Occ /HPF (0-2) Urine WBC 5-10 /HPF (0-4) Urine Squamous Epithelial Cells Few /LPF Urine Bacteria 0 /HPF (0-FEW) Urine Hyaline Casts Few /HPF Urine Mucus Marked /LPF Urine Opiates Screen Neg (NEG) Urine Methadone Screen Neg (NEG) Urine Barbiturates Neg (NEG) Urine Phencyclidine Screen Neg (NEG) Urine Amphetamine/Methamphetamine Neg (NEG) Urine Benzodiazepines Screen Neg (NEG) Urine Cocaine Screen Neg (NEG) Urine Cannabinoids Screen Neg (NEG) Urine Ethyl Alcohol Neg (NEG) White Blood Count 13.0 x10^3/uL (4.0-11.0) 10.2 x10^3/uL (4.0-11.0) Red Blood Count 4.06 x10^6/uL (3.50-5.40) 3.44 x10^6/uL (3.50-5.40) Hemoglobin 11.8 g/dL (12.0-15.5) 10.2 g/dL (12.0-15.5) Hematocrit 36.5 % (36.0-47.0) 31.0 % (36.0-47.0) Mean Corpuscular Volume 90 fL (79-100) 90 fL (79-100) Mean Corpuscular Hemoglobin 29 pg (25-35) 30 pg (25-35) Mean Corpuscular Hemoglobin Concent 32 g/dL (31-37) 33 g/dL (31-37) Red Cell Distribution Width 14.0 % (11.5-14.5) 14.2 % (11.5-14.5) Platelet Count 316 x10^3/uL (140-400) 281 x10^3/uL (140-400) Neutrophils (%) (Auto) 89 % (31-73) 81 % (31-73) Lymphocytes (%) (Auto) 4 % (24-48) 10 % (24-48) Monocytes (%) (Auto) 6 % (0-9) 8 % (0-9) Eosinophils (%) (Auto) 0 % (0-3) 1 % (0-3) Basophils (%) (Auto) 0 % (0-3) 0 % (0-3) Neutrophils # (Auto) 11.6 x10^3uL (1.8-7.7) 8.3 x10^3uL (1.8-7.7) Lymphocytes # (Auto) 0.6 x10^3/uL (1.0-4.8) 1.0 x10^3/uL (1.0-4.8) Monocytes # (Auto) 0.8 x10^3/uL (0.0-1.1) 0.8 x10^3/uL (0.0-1.1) Eosinophils # (Auto) 0.0 x10^3/uL (0.0-0.7) 0.1 x10^3/uL (0.0-0.7) Basophils # (Auto) 0.0 x10^3/uL (0.0-0.2) 0.0 x10^3/uL (0.0-0.2) Segmented Neutrophils % 89 % (35-66) Lymphocytes % 5 % (24-48) Monocytes % 6 % (0-10) Platelet Estimate Adequate (ADEQUATE) Sodium Level 142 mmol/L (136-145) 142 mmol/L (136-145) Potassium Level 4.0 mmol/L (3.5-5.1) 3.8 mmol/L (3.5-5.1) Chloride Level 105 mmol/L (98-107) 106 mmol/L (98-107) Carbon Dioxide Level 27 mmol/L (21-32) 24 mmol/L (21-32) Anion Gap 10 (6-14) 12 (6-14) Blood Urea Nitrogen 12 mg/dL (7-20) 13 mg/dL (7-20) Creatinine 0.9 mg/dL (0.6-1.0) 0.5 mg/dL (0.6-1.0) Estimated GFR (Cockcroft-Gault) 67.1 132.2 Glucose Level 118 mg/dL (70-99) 90 mg/dL (70-99) Calcium Level 9.4 mg/dL (8.5-10.1) 8.7 mg/dL (8.5-10.1) Salicylates Level < 2.8 mg/dL (2.8-20.0) Salicylate Last Dose Date Unk Salicylate Last Dose Time Unk Acetaminophen Level < 2 mcg/ml (10-30) Acetaminophen Last Dose Date Unk Acetaminophen Last Dose Time Unk Ethyl Alcohol Level < 10 mg/dL (0-10) Laboratory Tests Test 04/10/17 18:05 04/10/17 18:15 04/11/17 05:20 Urine Collection Type U cath Urine Color Yellow Urine Clarity Clear Urine pH 6.5 Urine Specific [employer] 1.015 Urine Protein Negative mg/dL (NEG-TRACE) Urine Glucose (UA) Negative mg/dL (NEG) Urine Ketones (Stick) >=80 mg/dL (NEG) Urine Blood Negative (NEG) Urine Nitrite Negative (NEG) Urine Bilirubin Negative (NEG) Urine Urobilinogen Dipstick 0.2 mg/dL (0.2 mg/dL) Urine Leukocyte Esterase Small (NEG) Urine RBC Occ /HPF (0-2) Urine WBC 5-10 /HPF (0-4) Urine Squamous Epithelial Cells Few /LPF Urine Bacteria 0 /HPF (0-FEW) Urine Hyaline Casts Few /HPF Urine Mucus Marked /LPF Urine Opiates Screen Neg (NEG) Urine Methadone Screen Neg (NEG) Urine Barbiturates Neg (NEG) Urine Phencyclidine Screen Neg (NEG) Urine Amphetamine/Methamphetamine Neg (NEG) Urine Benzodiazepines Screen Neg (NEG) Urine Cocaine Screen Neg (NEG) Urine Cannabinoids Screen Neg (NEG) Urine Ethyl Alcohol Neg (NEG) White Blood Count 13.0 x10^3/uL (4.0-11.0) 10.2 x10^3/uL (4.0-11.0) Red Blood Count 4.06 x10^6/uL (3.50-5.40) 3.44 x10^6/uL (3.50-5.40) Hemoglobin 11.8 g/dL (12.0-15.5) 10.2 g/dL (12.0-15.5) Hematocrit 36.5 % (36.0-47.0) 31.0 % (36.0-47.0) Mean Corpuscular Volume 90 fL (79-100) 90 fL (79-100) Mean Corpuscular Hemoglobin 29 pg (25-35) 30 pg (25-35) Mean Corpuscular Hemoglobin Concent 32 g/dL (31-37) 33 g/dL (31-37) Red Cell Distribution Width 14.0 % (11.5-14.5) 14.2 % (11.5-14.5) Platelet Count 316 x10^3/uL (140-400) 281 x10^3/uL (140-400) Neutrophils (%) (Auto) 89 % (31-73) 81 % (31-73) Lymphocytes (%) (Auto) 4 % (24-48) 10 % (24-48) Monocytes (%) (Auto) 6 % (0-9) 8 % (0-9) Eosinophils (%) (Auto) 0 % (0-3) 1 % (0-3) Basophils (%) (Auto) 0 % (0-3) 0 % (0-3) Neutrophils # (Auto) 11.6 x10^3uL (1.8-7.7) 8.3 x10^3uL (1.8-7.7) Lymphocytes # (Auto) 0.6 x10^3/uL (1.0-4.8) 1.0 x10^3/uL (1.0-4.8) Monocytes # (Auto) 0.8 x10^3/uL (0.0-1.1) 0.8 x10^3/uL (0.0-1.1) Eosinophils # (Auto) 0.0 x10^3/uL (0.0-0.7) 0.1 x10^3/uL (0.0-0.7) Basophils # (Auto) 0.0 x10^3/uL (0.0-0.2) 0.0 x10^3/uL (0.0-0.2) Segmented Neutrophils % 89 % (35-66) Lymphocytes % 5 % (24-48) Monocytes % 6 % (0-10) Platelet Estimate Adequate (ADEQUATE) Sodium Level 142 mmol/L (136-145) 142 mmol/L (136-145) Potassium Level 4.0 mmol/L (3.5-5.1) 3.8 mmol/L (3.5-5.1) Chloride Level 105 mmol/L (98-107) 106 mmol/L (98-107) Carbon Dioxide Level 27 mmol/L (21-32) 24 mmol/L (21-32) Anion Gap 10 (6-14) 12 (6-14) Blood Urea Nitrogen 12 mg/dL (7-20) 13 mg/dL (7-20) Creatinine 0.9 mg/dL (0.6-1.0) 0.5 mg/dL (0.6-1.0) Estimated GFR (Cockcroft-Gault) 67.1 132.2 Glucose Level 118 mg/dL (70-99) 90 mg/dL (70-99) Calcium Level 9.4 mg/dL (8.5-10.1) 8.7 mg/dL (8.5-10.1) Salicylates Level < 2.8 mg/dL (2.8-20.0) Salicylate Last Dose Date Unk Salicylate Last Dose Time Unk Acetaminophen Level < 2 mcg/ml (10-30) Acetaminophen Last Dose Date Unk Acetaminophen Last Dose Time Unk Ethyl Alcohol Level < 10 mg/dL (0-10) Brief Hospital Course Ms. Bai is a 46 old [sex] who presented with [ ]46 y.o female with psych issues, transferred from [facility] to [facility] ER last night bec of refusal to drink meds. She was attempted to transfer [facility] psych [place] by ER last night but to no avail. She was just recently dcd from [facility] psych [place], dx of schizophrenia. NOw pt refusing IV line, refusing to talk to me or staff, refusing to eat or take meds Dw sister on phone,shakes of her hand is normal. 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 LAbs benign, all psych issues but unfortunately is not eager to accept her back LAbs just show ketonuria, all else is neg Sw at claims she has rhabdo, all labs look ok - will order CPK to check on rhabdo,. But UA does not show blood - doubt rhabdo If CPK and myoglobin normal will dc back to , NO medical necessity to be in house Addendum: CPK normalized after 1 day of OFI, did not need any IVF BAck to , still refusing AM meds Discharge Information Condition at Discharge: Stable Disposition/Orders: Other (snf) Scheduled Aripiprazole (Abilify), 10 MG PO BID, (Reported) Cephalexin (Cephalexin), 1 CAP PO QID, (Reported) Loratadine (Loratadine), 1 TAB PO DAILY, (Reported) Lorazepam (Lorazepam), 1 TAB PO TID, (Reported) Moxifloxacin Hcl (Moxeza), 1 DROP EACHEYE TID, (Reported) Vitamin E Mixed (Vitamin E), 400 UNIT PO DAILY, (Reported) Scheduled PRN Acetaminophen (Acetaminophen), 650 MG PO PRN Q4HRS PRN for PAIN, (Reported) Bisacodyl (Dulcolax), 10 MG FL PRN DAILY PRN for CONSTIPATION, (Reported) Ibuprofen (Ibuprofen), 400 MG PO PRN Q4HRS PRN for INFLAMMATION, (Reported) Miscellaneous Medications Calcium Carbonate (Tums Ultra Strength), 1,177 MG PO, (Reported) Simethicone (Simethicone), 80 MG PO, (Reported) VAHID LONDONO MD April 11, 2017 10:49 DICTATED BY: VAHID LONDONO MD 04/12/17 1049 SIGNED BY: VAHID LONDONO MD 04/12/17 1049 cc: JEF ATKINSON; VAHID LONDONO MD; ONUR JIANG MD ~ VAHID LONDONO MD April 12, 2017 13:39
[2017-04-12 15:02] VITALS: BP 110/75
== END 2017-04-12 16:55 | DRG 885 ==
LOC: ER 17:24 → OBSVTOIN 20:57 → 5 SOUTH 20:57
PROVIDERS: ADMIT Internal Medicine; ATTEND Internal Medicine
DX: F20.9 Schizophrenia, unspecified (principal); M62.82 Rhabdomyolysis; F99 Mental disorder, not otherwise specified; I10 Essential (primary) hypertension; D72.828 Other elevated white blood cell count; E86.0 Dehydration; E63.8 Other specified nutritional deficiencies; F42.9 Obsessive-compulsive disorder, unspecified; F50.9 Eating disorder, unspecified; K59.00 Constipation, unspecified; F32.9 Major depressive disorder, single episode, unspecified; J40 Bronchitis, not specified as acute or chronic; Z87.440 Personal history of urinary (tract) infections; Z88.0 Allergy status to penicillin; Z79.899 Other long term (current) drug therapy; D63.8 Anemia in other chronic diseases classified elsewhere
CPT/HCPCS: 36415; 80048; 81001; 82550; 85007; 85027; 87086; 93005; 96360; 96361; G0480; G0481; G6038; J7030; 80196; 99285-25

== ENCOUNTER 2017-12-23 23:42 | Emergency (ER) | payer MEDICAID ==
[2017-12-24] MEDS: OLANZapine 5 MG TABLET PO ×3 (00:11)
[2017-12-24] MEDS: LORazepam 1 MG TABLET PO ×3 (00:14)
== END 2017-12-24 01:16 | disposition home or self-care (01) ==
LOC: ER 23:42
DX: Z91.14 Patient's other noncompliance with medication regimen (principal); F20.9 Schizophrenia, unspecified (principal); I10 Essential (primary) hypertension; Z88.0 Allergy status to penicillin
CPT/HCPCS: 99284